=== PATIENT | male | born 1975 | race Caucasian/White ===

== ENCOUNTER → 2016-08-26 | Outpatient (CLI) | payer OTHER ==
[~2016-08-26] MED LIST: ACHD5005 PO; ACYC400T21 PO; ALBU8.5H2 IH; ASPI-587 PO; CPR500T PO; DENIES; DEXL60CA5 PO; GABA-488 PO; HCT25T PO; HYDR1TAB8 OP; IBP800T PO; IBUP800T26 PO; LISI40TA PO; METO-352 PO; Metoprolol Succinate PO; NAPR-243 PO; OMEG1CAP51 PO; OMEP20CA12 PO; ONDAN4ODT PO; PRAV40TA2 PO; PRD20T PO; PRD50T PO; SIMV40TA4 PO
== END ==
LOC: RAD 07:56
PROVIDERS: ATTEND Family Medicine
DX: H93.13 Tinnitus, bilateral (principal); G83.9 Paralytic syndrome, unspecified

== ENCOUNTER → 2016-09-16 | Outpatient (CLI) | payer OTHER ==
[~2016-09-16] MED LIST changes: +GADOBUTROL 15 MMOL/15 ML (GADAVIST) VIAL IV ONE
--- NOTE | 2016-09-16 16:20 | Diagnostic Imaging Report ---
EXAMINATION: Multiplanar, multisequence MRI of the brain and IAC. Additional thin section images performed without and with intravenous contrast. INDICATION: Ringing in the ears. History of Pena's palsy. Right hand numbness and swelling. 11 mL of Gadavist is administered intravenously. FINDINGS: There is no diffusion restriction to suggest an acute infarct or other diffusion abnormality. The brain parenchyma demonstrates plunkett and white matter normal signal with no significant ischemic changes, brain edema or demyelinating lesions. There is a small DVA incidentally noted in the right frontal lobe. There is normal appearance of the brainstem and cerebellum. No hydrocephalus. No extra-axial fluid collection or enhancing masses seen. Thin images through the IAC demonstrate symmetric IAC caliber and seventh and eighth nerve normal appearance bilaterally. The cochlea, semicircular canals and vestibule appear symmetric. The pituitary gland is normal in size. No hypothalamic or pineal region mass. IMPRESSION: Unremarkable exam. Dictated by: Dictated on workstation # [id number]
== END ==
LOC: RAD 09:07
PROVIDERS: ATTEND Family Medicine
DX: H93.13 Tinnitus, bilateral (principal); G51.0 Bell's palsy; R20.2 Paresthesia of skin; R22.31 Localized swelling, mass and lump, right upper limb; R22.32 Localized swelling, mass and lump, left upper limb
CPT/HCPCS: 70553

== ENCOUNTER → 2016-10-31 | Outpatient (CLI) | payer OTHER ==
[~2016-10-31] MED LIST changes: -GADOBUTROL 15 MMOL/15 ML (GADAVIST) VIAL IV ONE
--- NOTE | 2016-10-31 13:25 | Diagnostic Imaging Report ---
PROCEDURE: CT chest without contrast. TECHNIQUE: Multiple contiguous axial images were obtained through the chest without the use of intravenous contrast. INDICATION: Surinder's syndrome. FINDINGS: There are multiple subpleural nodules seen, and most of these nodules have calcification suggestive of prior infectious process. There is a nodule measuring 1.1 cm without calcification seen also in subpleural location along the lateral right costophrenic angle. This is also presumed to be of similar etiology and this nodule appears to be present from [address] confirming benign etiology. There is no significant consolidation, mass or spiculated nodule seen. The heart size is normal. No pericardial or pleural effusion. There is no mediastinal mass. No significant lymphadenopathy in the mediastinum or axilla. The juvenal are not opacified on this unenhanced exam with no hilar mass or definite lymphadenopathy identified. The osseous structures demonstrate minimal scoliotic curvature convex to the right in the upper thoracic spine. IMPRESSION: Multiple subcentimeter nodules mostly subpleural and calcified in the right lung, probably sequela of prior granulomatous infection. No acute process. Dictated by: Dictated on workstation # [id number]
== END ==
LOC: RAD 11:49
PROVIDERS: ATTEND Family Medicine
DX: R91.8 Other nonspecific abnormal finding of lung field (principal); G90.2 Horner's syndrome
CPT/HCPCS: 71250

== ENCOUNTER → 2017-04-17 | Outpatient (CLI) | payer SELFPAY | LOC: RT 07:36 | PROVIDERS: ATTEND Family Medicine | DX: R55 Syncope and collapse (principal) ==

== ENCOUNTER → 2017-04-18 | Outpatient (CLI) | payer OTHER ==
--- NOTE | 2017-04-18 11:37 | Diagnostic Imaging Report ---
INDICATION: Ankle pain. History of Pena's palsy. COMPARISON: None. FINDINGS: Four views of the right ankle were obtained. There is no acute fracture or dislocation. No focal osseous lesions are seen. The surrounding soft tissue structures are unremarkable. There are no radiopaque foreign bodies. IMPRESSION: 1. No acute fracture or dislocation in the right ankle. Dictated by: Dictated on workstation # [id number]
--- NOTE | 2017-04-18 11:44 | Diagnostic Imaging Report ---
INDICATION: Bilateral knee and ankle pain. COMPARISON: None. FINDINGS: 2 views of each knee joint demonstrate no acute fracture or dislocation. No focal osseous lesions are seen. No significant joint effusion is seen. The surrounding soft tissue structures are unremarkable. There are no radiopaque foreign bodies. IMPRESSION: 1. Unremarkable radiographic exam of the bilateral knees. Dictated by: Dictated on workstation # [id number]
== END ==
LOC: RAD 09:13
PROVIDERS: ATTEND Neuromusculoskeletal Medicine, Sports Medicine
DX: Z02.71 Encounter for disability determination (principal); M25.561 Pain in right knee; M25.562 Pain in left knee; M25.571 Pain in right ankle and joints of right foot; M25.572 Pain in left ankle and joints of left foot; Z86.69 Personal history of other diseases of the nervous system and sense organs

== ENCOUNTER → 2018-05-09 | Outpatient (CLI) | payer MEDICARE ==
[~2018-05-09] MED LIST changes: +METH-313 PO; +NAPR-1071 PO; +RT-ALBUTEROL SULF 2.5 MG/3 ML PRE-MIX VIAL INH ONE; +RT-ALBUTEROL SULF 2.5 MG/3 ML PRE-MIX VIAL ONE
== END ==
LOC: RT 11:11
PROVIDERS: ATTEND Family Medicine
DX: R06.02 Shortness of breath (principal)
CPT/HCPCS: 94060; 94726; 94729

== ENCOUNTER → 2018-05-14 | Outpatient (CLI) | payer MEDICARE ==
[~2018-05-14] MED LIST changes: -RT-ALBUTEROL SULF 2.5 MG/3 ML PRE-MIX VIAL INH ONE; -RT-ALBUTEROL SULF 2.5 MG/3 ML PRE-MIX VIAL ONE
== END ==
LOC: CARD 11:02
PROVIDERS: ATTEND Nurse Practitioner Family
DX: R07.9 Chest pain, unspecified (principal); I51.7 Cardiomegaly
CPT/HCPCS: 93306

== ENCOUNTER 2019-01-06 09:12 | Outpatient (RCR) | payer MEDICARE ==
[2018-12-29 08:30] VITALS: BP 136/92
[2018-12-30 10:25] VITALS: BP 111/80
[2019-01-05 09:25] VITALS: BP 130/89
[~2019-01-06] VITALS: Ht 178 cm; Wt 117.0 kg
[~2019-01-06 09:12] MED LIST changes: +ASPI-586 PO; +ATOR40TA70 PO; +CETI10CA PO; +DEXL60CA PO; +HYDR-3820 PO; +IBUP-1780 PO; +OMEG-77 PO; +Trimethoprim/Sulfamethoxazole PO
[2019-01-06 10:21] VITALS: BP 115/70
== END 2019-01-08 14:57 | disposition home or self-care (01) ==
LOC: SDC 09:12
PROVIDERS: ATTEND Surgery
DX: Z48.01 Encounter for change or removal of surgical wound dressing (principal)
CPT/HCPCS: 99212

== ENCOUNTER 2019-03-12 05:32 | Outpatient (CLI) | payer MEDICARE ==
[~2019-03-12] VITALS: Ht 177.8 cm; Wt 114.0 kg
== END 2019-03-12 10:13 | disposition home or self-care (01) ==
LOC: PREOP 05:32
PROVIDERS: ATTEND Surgery
DX: Z01.818 Encounter for other preprocedural examination (principal)

== ENCOUNTER 2019-04-21 08:55 | Outpatient (RCR) | payer MEDICARE ==
[2019-03-23 09:15] VITALS: BP 141/79
[2019-03-24 09:08] VITALS: BP 112/86
[2019-03-30 09:10] VITALS: BP 123/92
[2019-03-31 09:00] VITALS: BP 110/81
[2019-04-06 09:15] VITALS: BP 126/84
[2019-04-07 09:15] VITALS: BP 126/93
[2019-04-13 08:58] VITALS: BP 130/86
[2019-04-14 08:59] VITALS: BP 127/83
[2019-04-20 09:00] VITALS: BP 121/78
[2019-04-21 08:55] VITALS: BP 123/82
[~2019-04-21 08:55] MED LIST changes: +ACHYD1T PO; -HYDR-3820 PO
== END 2019-06-21 | disposition home or self-care (01) ==
LOC: SDC 08:55
PROVIDERS: ATTEND Surgery
DX: K62.89 Other specified diseases of anus and rectum (principal)
CPT/HCPCS: 99212